=== PATIENT | male | born 1995 ===

== ENCOUNTER 2017-04-17 19:28 | Emergency (ER) | payer OTHER ==
[2017-04-17 19:43] VITALS: BP 134/73; PULSE 65; TEMP 97.5; O2SAT 98
[2017-04-17] MEDS ORDERED: Lidocaine 1% Inj (20ml) INFIL STA (20:55)
[2017-04-17] MEDS ORDERED: Bacitracin 500 Units/gm Oint Foilpak UD TOP ONE (20:56)
[2017-04-17] MEDS ORDERED: Lidocaine 2% w Epi 1:100,000 Inj IJ ONE (20:58)
--- NOTE | 2017-04-17 21:00 | C.PDOC ---
History Of Present Illness Patient is a 22 y/o male who presents to the ED with a complaint of laceration to the nasal bridge. Patient reports to have been working on a loading dock when the door cam down and hit his nose. Denies any LOC. No other physical complaints at this time. 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) Current Symptoms Are (Timing): Still Present Recent travel outside of the [place]: No Past Medical History Reviewed: Historical Data, Nursing Documentation, Vital Signs Vital Signs: Last Vital Signs Temp 97.5 F L 04/17/17 19:39 Pulse 65 04/17/17 19:39 Resp 20 04/17/17 21:43 BP 134/73 04/17/17 19:39 Pulse Ox 98 04/17/17 21:53 - Medical History PMH: No Chronic Diseases Surgical History: No Surg Hx Family History: States: No Known Family Hx - Social History Hx Alcohol Use: No Hx Substance Use: No Review Of Systems Skin: Positive for: Other (laceration to nasal bridge) Physical Exam - Physical Exam Appears: Well, Non-toxic, No Acute Distress Skin: Other (2 cm laceration to nasal bridge) Head: Normacephalic Eye(s): bilateral: Normal Inspection, PERRL, EOMI Ear(s): Bilateral: Normal Nose: Normal, No Epistaxis, No Deformity, No Septal Hematoma Oral Mucosa: Moist Neck: Normal ROM, Supple Chest: Symmetrical Respiratory: No Accessory Muscle Use Extremity: Normal ROM Neurological/Psych: Oriented x3, Normal Speech, Normal Cognition ED Course And Treatment O2 Sat by Pulse Oximetry: 98 (room air) Pulse Ox Interpretation: Normal - Other Rad Nasal FX X-Ray: Interpreted by Me, Viewed By Me Interpretation: no fx or dislocation Progress Note: Plan: Adacel, Lidocaine, Motrin, and Bacitracin administered. Stitches administered. Patients condition remained stable throughout Emergency Department evaluation with no evidence of neurologic instability. There is always a risk of undetected foreign body nerve or tendon injury, therefore the importance of close follow-up care was stressed. Laceration - Laceration Repair nasal bridge Wound Length (In cm): 2 Description Of Wound: Linear Wound Cleansed With: Betadine, Sterile Saline Anesthesia: Lidocaine 1% Wound Examination: Irrigated With Saline, No FB With Wound Exploration, No Tendon Injury With Wound Exploration Wound Closure: Suture (2) Suture Technique And Material Used: Interrupted Wound Complexity: Simple Disposition - Disposition Disposition: HOME/ ROUTINE Disposition Time: 21:21 Condition: STABLE Additional Instructions: Suture removal in 5-7 days. Watch for signs of infection including redness, swelling and discharge. Return to ER if symptoms persist or worsen. Eliminacin de sutura en 5-7 monaco. Est atento a los signos de infeccin, incluyendo enrojecimiento, hinchazn y secrecin. Regrese a la priyank de emergencias si los sntomas persisten o empeoran. Prescriptions: Bacitracin OINT 1 applic TP BID #1 tube Instructions: Facial Laceration (ED) Forms: [employer] (Divehi) - Clinical Impression Clinical Impression: Facial laceration - Scribe Statement The provider has reviewed the documentation as recorded by the Scribe Latasha Salazar All medical record entries made by the Scribe were at my direction and personally dictated by me. I have reviewed the chart and agree that the record accurately reflects my personal performance of the history, physical exam, medical decision making, and the department course for this patient. I have also personally directed, reviewed, and agree with the discharge instructions and disposition.
[2017-04-17] MEDS ORDERED: Bacitracin 500 Units/gm Oint Foilpak UD ONE (21:16)
[2017-04-17 21:44] VITALS: RESP 20
--- NOTE | 2017-04-18 11:08 | RAD ---
PROCEDURE: Radiographs of Nasal Bones HISTORY: trauma COMPARISON: None available. TECHNIQUE: Frontal and lateral radiographs of the nasal bones. FINDINGS: No fracture of nasal bones visualized. No destructive lesion. The nasal soft tissues are normal. IMPRESSION: No acute nasal bone fracture visualized.
== END 2017-04-17 21:43 | disposition home or self-care (01) ==
LOC: C.ER 19:28
DX: S01.21XA Laceration without foreign body of nose, initial encounter (principal); W22.8XXA Striking against or struck by other objects, initial encounter; Y99.0 Civilian activity done for income or pay; Z23 Encounter for immunization

== ENCOUNTER 2017-05-14 15:34 | Emergency (ER) | payer OTHER ==
[2017-05-14 16:03] VITALS: BMI 25.3
[2017-05-14 16:05] VITALS: BP 146/80; PULSE 82; TEMP 100.9; O2SAT 100
--- NOTE | 2017-05-14 16:51 | C.PDOC ---
History Of Present Illness Leanna Mooney is a 22 year old male, with no past medical history, who presents to the emergency department complaining of sore throat, body aches, and fever onset since yesterday. Patient reports a Tmax of 102 at home yesterday. He denies any nausea, vomit, neck pain, or headache. No further medical complaints. PMD: None provided. Time Seen by Provider: 05/14/17 16:16 Chief Complaint (Nursing): Flu-like Symptoms History Per: Patient History/Exam Limitations: no limitations Onset/Duration Of Symptoms: Days (x1) Current Symptoms Are (Timing): Still Present Location Of Pain: Throat Associated Symptoms: Fever, Sore Throat, Other (body aches). denies: Neck Pain , Nausea, Vomiting Ear Symptoms: Bilateral: None Past Medical History Reviewed: Historical Data, Nursing Documentation, Vital Signs Vital Signs: Last Vital Signs Temp 100.9 F H 05/14/17 16:03 Pulse 82 05/14/17 16:03 Resp 20 05/14/17 16:03 BP 146/80 05/14/17 16:03 Pulse Ox 100 05/14/17 16:58 - Medical History PMH: No Chronic Diseases Surgical History: No Surg Hx Family History: States: Unknown Family Hx - Social History Hx Tobacco Use: No Hx Alcohol Use: No Hx Substance Use: No - Immunization History Hx Tetanus Toxoid Vaccination: No Hx Influenza Vaccination: No Hx Pneumococcal Vaccination: No Review Of Systems Constitutional: Positive for: Fever, Other (body aches) ENT: Positive for: Throat Pain Cardiovascular: Negative for: Chest Pain Respiratory: Negative for: Shortness of Breath Gastrointestinal: Negative for: Nausea, Vomiting Musculoskeletal: Negative for: Neck Pain Neurological: Negative for: Headache Physical Exam - Physical Exam Appears: Other (Ill) Skin: No Normal Color (flushed) Head: Atraumatic, Normacephalic Eye(s): bilateral: Normal Inspection (watery), PERRL, EOMI Ear(s): Bilateral: Normal Nose: Normal Throat: Erythema Neck: Normal ROM Cardiovascular: Rhythm Regular Respiratory: Normal Breath Sounds, No Accessory Muscle Use Gastrointestinal/Abdominal: Normal Exam, Soft, No Tenderness Extremity: Normal ROM, No Deformity, No Swelling Neurological/Psych: Oriented x3 (alert) ED Course And Treatment O2 Sat by Pulse Oximetry: 100 (RA) Pulse Ox Interpretation: Normal Medical Decision Making Medical Decision Making: Initial Impression: URI, Flu Initial Plan: --Motrin tab 600 mg PO --Tamiflu Cap 75 mg PO BID --Tylenol 325 mg tab 975 mg PO Disposition Counseled Patient/Family Regarding: Diagnosis, Need For Followup, Rx Given - Disposition Referrals: [facility] [Outside] Disposition: HOME/ ROUTINE Disposition Time: 17:02 Condition: STABLE Additional Instructions: Siga en la clinica. JACOBO Gallegos. Prescriptions: Ibuprofen [Motrin] 1 tab PO TID PRN #30 tab PRN Reason: Pain Oseltamivir [Tamiflu] 1 cap PO BID #10 cap Instructions: Viral Syndrome (ED) Forms: Gen Discharge Inst Slovak, [email or web address] (Slovak), Work Excuse - POA Present On Arrival: None - Clinical Impression Clinical Impression: Influenza-like illness - Scribe Statement Jesus Kang Provider Attestation: All medical record entries made by the Scribe were at my direction and personally dictated by me. I have reviewed the chart and agree that the record accurately reflects my personal performance of the history, physical exam, medical decision making, and the department course for this patient. I have also personally directed, reviewed, and agree with the discharge instructions and disposition.
[2017-05-14 17:43] VITALS: RESP 18
== END 2017-05-14 17:25 | disposition home or self-care (01) ==
LOC: C.ER 15:34
DX: J11.1 Influenza due to unidentified influenza virus with other respiratory manifestations (principal)